=== PATIENT | male | born 1970 | race African-American/Black ===

== ENCOUNTER 2020-07-23 20:37 | Emergency (ER) | payer MEDICAID ==
[~2020-07-23] VITALS: Ht 180.3 cm; Wt 84.0 kg
[2020-07-23] MEDS ORDERED: ACETAMINOPHEN 325MG TABLET PO ONE (22:30)
[2020-07-23] MEDS ORDERED: PREDNISONE 20MG TABLET PO ONE (22:30)
[2020-07-23 23:33] VITALS: BP 131/74
== END 2020-07-23 23:33 | disposition home or self-care (01) ==
LOC: ER 20:37
DX: M54.5 Low back pain (principal); R21 Rash and other nonspecific skin eruption; I49.9 Cardiac arrhythmia, unspecified; Z88.0 Allergy status to penicillin; Z98.890 Other specified postprocedural states
CPT/HCPCS: 93005; 99283; J7512